=== PATIENT | female | born 1980 | race Native Hawaiian/Other Pacific Islander ===

== ENCOUNTER 2021-11-05 16:33 | Emergency (ER) | payer OTHER ==
[~2021-11-05] VITALS: Ht 170.2 cm; Wt 72.6 kg
[2021-11-05 16:33] VITALS: BP 136/87; TEMP 98
== END 2021-11-05 17:59 | disposition home or self-care (01) ==
LOC: ED 16:33
DX: L30.8 Other specified dermatitis (principal)
CPT/HCPCS: 99281